=== PATIENT | male | born 1950 | race African-American/Black ===

== ENCOUNTER 2018-04-23 15:57 | Observation (INO) | payer OTHER ==
[2018-04-23] MEDS ORDERED: Ondansetron HCl/PF 4 MG/2 ML Vial ONE (16:09)
[2018-04-23 16:46] LABS: #Basophils 0.1 thou/uL (0.0-0.2); #Eosinphils 0.4 thou/uL (0.0-0.7); #Monocytes 0.6 thou/uL (0.11-0.59); #Neutrophils 1.7 thou/uL (1.40-6.50); %Basophils 1.3 % (0.0-1.0); %Eosinophils 8.4 % (0.0-10.0); %Lymphocytes 41.6 % (21.0-51.0); %Monocytes 13.4 % (0.0-10.0); %Neutrophils 35.3 % (42.0-75.0); Hemoglobin 12.4 g/dL (14.0-18.0); Mean Corpuscular HGB CONC 33.7 g/dL (32.0-36.0); Mean Corpuscular Hemoglobin 31.5 pg (27.0-31.0); Mean Corpuscular Volume 93.3 fL (78.0-98.0); Platelet Count 156 thou/uL (130-400); RBC Distribution Width 11.3 % (11.5-14.5); Red Blood Cell (RBC) Count 3.93 mill/uL (4.70-6.10); White Blood Cell (WBC) Count 4.8 thou/uL (4.8-10.8)
[2018-04-23 16:52] LABS: PTT 26.8 SEC (22.9-36.1); Prothrombin Time 13.3 SEC (12.0-14.7)
--- NOTE | 2018-04-23 16:55 | RAD ---
PORTABLE UPRIGHT CHEST ONE VIEW: 04/23/18 HISTORY: 67-year-old male with history of chest pain which began approximately an hour and a half ago with rad iation into left arm. Postop midline sternotomy and coronary artery bypass changes. Mild increased markings in the infrahil ar regions raising concern for some minimal subsegmental atelectasis and possibly mild vascular crowd ing from poor inspiration. No confluent pneumonia or overt edema or pleural effusion. IMPRESSION: Increased markings in the basis, probably related to vascular crowding or possibly some underlying ch ronic change. No confluent pneumonia, overt edema or other acute process. POS: [facility]
[2018-04-23 17:07] LABS: ALT (SGPT) 13 U/L (8-55); AST (SGOT) 16 U/L (5-34); Albumin 4.2 g/dL (3.4-4.8); Alkaline Phosphatase 129 U/L (40-150); Anion Gap 14 mmol/L (10-20); BUN (Urea Nitrogen) 12 mg/dL (8.4-25.7); Bilirubin, Total 0.3 mg/dL (0.2-1.2); CK (CPK) 136 U/L (30-200); Calc. Creatinine Clearance 0 mL/min (70-130); Carbon Dioxide 21 mmol/L (23-31); Chloride 106 mmol/L (98-107); Estimated GFR-MDRD 76; Globulin 3.1 g/dL (2.4-3.5); Glucose 105 mg/dL (80-115); Potassium 4.3 mmol/L (3.5-5.1); Protein, Total 7.3 g/dL (5.8-8.1); Sodium 137 mmol/L (136-145)
[2018-04-23 17:12] LABS: CKMB 1.6 ng/mL (0-6.6); Troponin I 0.011 ng/mL (< 0.028)
[2018-04-23] MEDS ORDERED: Morphine 4 MG/ML VIAL ONE (18:53)
[2018-04-23 19:51] LABS: Troponin I 0.022 ng/mL (< 0.028)
[2018-04-23] MEDS ORDERED: Nitroglycerin 0.4 MG TAB (25 Tab Bottle) ONE (22:36)
[2018-04-23 23:58] LABS: Troponin I 0.011 ng/mL (< 0.028)
[2018-04-24 00:21] VITALS: BMI 23.1
[2018-04-24] MEDS ORDERED: Ondansetron HCl/PF 4 MG/2 ML Vial IVP PRN (00:27)
[2018-04-24] MEDS ORDERED: Nitroglycerin 0.4 MG TAB (25 Tab Bottle) SL PRN (01:04)
[2018-04-24] MEDS: Acetaminophen 325 MG TAB PO PRN ×2 (02:11→09:12)
[2018-04-24 02:20] LABS: Band 3 % (5-11); Eosinophils 4 % (0-10); Hemoglobin 12.5 g/dL (14.0-18.0); Lymphocytes 60 % (21-51); MDiff Complete? YES; Mean Corpuscular Hemoglobin 32.5 pg (27.0-31.0); Mean Platelet Volume 8.5 fL (7.4-10.4); Monocytes 8 % (0-10); Neutrophil 23 % (42-75); Platelet Count 162 thou/uL (130-400); RBC Distribution Width 11.3 % (11.5-14.5); Red Blood Cell (RBC) Count 3.85 mill/uL (4.70-6.10); White Blood Cell (WBC) Count 4.5 thou/uL (4.8-10.8)
[2018-04-24] MEDS: Nitroglycerin 0.4 MG TAB (25 Tab Bottle) SL PRN ×4 (02:20→23:48)
[2018-04-24 02:24] LABS: Troponin I 0.012 ng/mL (< 0.028)
[2018-04-24 02:45] LABS: Anion Gap 10 mmol/L (10-20); BUN (Urea Nitrogen) 11 mg/dL (8.4-25.7); Calc. Creatinine Clearance 69 mL/min (70-130); Carbon Dioxide 26 mmol/L (23-31); Chloride 107 mmol/L (98-107); Estimated GFR-MDRD 80; Glucose 147 mg/dL (80-115); Potassium 3.7 mmol/L (3.5-5.1); Sodium 139 mmol/L (136-145)
--- NOTE | 2018-04-24 03:50 | HP ---
CODE STATUS: FULL CODE TIME OF EVALUATION: 12:00 a.m. PRIMARY CARE PHYSICIAN: Patient is in shelter. No PCP reported. CHIEF COMPLAINT: Chest pain. HISTORY OF PRESENT ILLNESS: This is a 67-year-old male patient with past medical history of coronary artery disease. The patient has a stent placed in April on 04/03/2018 came to the hospital after h aving severe, 8/10, pressure-like pain in the middle of the chest radiating to the left arm. No josefina r triggers, no alleviating factors. The patient had some relief with nitroglycerin, only improvement was with opioids and steroids. The patient's pain is associated with no specific symptoms. No coug h, sputum production REVIEW OF SYSTEMS: Constitutional: No fever, no chills, generalized weakness. Respiratory: No cou gh, sputum production or shortness of breath. Cardiovascular: Chest pain as described in HPI. No p alpitation or shortness of breath. Gastrointestinal: No nausea, vomiting, diarrhea or abdominal angelica n. [employer] ARCHITECT: No dizziness, headache or feeling lightheaded. No burning on urination. Extremities: No leg swelling. All other systems reviewed and negative except for the findings mentioned above. PAST MEDICAL HISTORY: Anemia, GERD, hepatitis C, epilepsy. PAST SURGICAL HISTORY: Stent x1 two weeks ago. PSYCHIATRIC HISTORY: None reported. FAMILY HISTORY: Father with cancer. Mother, no significant medical history. DRUG ALLERGIES: INOSINE. REPORTED MEDICATIONS: Plavix, cyanocobalamin, duloxetine, amlodipine, aspirin, atorvastatin. PHYSICAL EXAMINATION: VITAL SIGNS: Blood pressure 113/66, heart rate 52, respiratory rate was 18, temperature 97.4, pain w as 8/10, oxygen saturation 99% on room air. GENERAL APPEARANCE: Patient is alert, oriented, no acute distress. HEENT: Normal conjunctivae. Moist oral mucosa. Anicteric. NECK: No JVD. RESPIRATORY: Bilateral air entry. No rales, no wheezing. Symmetric expansion. CARDIOVASCULAR: Normal rate, regular rhythm. No murmurs, no gallop. No edema. ABDOMEN: Soft, normal bowel sounds. MUSCULOSKELETAL: Baseline range of motion and strength. No tenderness. SKIN: Warm and intact. No pallor, no rash, no redness. NEUROLOGIC: Baseline sensorium. No evidence of any new focal weakness. Baseline speech. Cranial n erves, sensory intact. PSYCHIATRIC: The patient has good mood. No anxiety, oriented, optimal judgment. LABORATORY DATA: EKG was reviewed. The patient has sinus bradycardia at the rate of 48 with IA 170, QRS 82, QT corrected 400. Nonspecific ST and T-wave abnormalities. Chest x-ray was reviewed. The patient had increased markings in the bases, probably related to vascular crowding and possible some underlying chronic changes, no confluent pneumonia or edema or other acute process. The labs were re viewed. The patient had white count 4.8, hemoglobin 12.4, MCV 93, platelet count 156. Chemistry was completely normal. LFTs were normal. Kidney function is normal. Troponins were negative x3. ASSESSMENT AND PLAN: The patient will be placed in the hospital for the following medical problems. 1. Chest pain, rule out acute coronary syndrome. The patient has a troponin that is negative x3, no EKG changes, the patient does have a recent stent placed 2 weeks ago in [place]; for the reason, w e will consult Cardiology, reconcile home medications. We will treat symptomatically. 2. History of gastroesophageal reflux disease, reconcile home meds. 3. History of epilepsy, chronic, seems to stable, reconcile home meds. 4. Hypertension has been uncontrolled on initial presentation was systolic 160, has been in better c ontrol after that, reconcile home medications, likely due to acute distress. 5. Hyperlipidemia. The patient will continue on home meds. Low cholesterol diet is advised. 6. Deep venous thrombosis prophylaxis. Risk assessment, the patient is high risk of complication du e to need for administration of opioid medications IV for pain control.
[2018-04-24] MEDS ORDERED: Prevnar 13-Val Conj/PF 0.5 ML SYRINGE IM ONE (09:00)
[2018-04-24] MEDS ORDERED: Cyanocobalamin 1000 MCG/ML VIAL IM SCH (09:00)
[2018-04-24] MEDS: Amlodipine 5 MG TAB PO SCH (09:10)
[2018-04-24] MEDS: Enoxaparin Sodium 40 MG/0.4 ML SYRINGE SC SCH (09:11)
[2018-04-24] MEDS: Clopidogrel Bisulfate 75 MG TAB PO SCH (09:11)
[2018-04-24] MEDS: Aspirin 81 mg Enteric Coated Tablet PO SCH (09:11)
[2018-04-24] MEDS: Famotidine 20 MG TAB PO SCH (09:11)
--- NOTE | 2018-04-24 10:31 | CON ---
DATE OF CONSULTATION: 04/24/2018 REASON FOR CONSULTATION: Chest pain. HISTORY OF PRESENT ILLNESS: Mr. Ureña is a 67-year-old gentleman who comes to the hospital for chest pain. He is an inmate and had an episode of chest pain initially back in 018. He was taken to the [facility] where he had a heart catheterization, apparently 2 stent s were placed. It is unclear to what vessels. He has a history of a previous bypass surgery about 3 years ago. He states he had 3-vessel bypass and on that heart catheterization he was told that one of the bypasses was completely occluded and this was the area that was stented and he was told that t he other bypass was beginning to degenerate. He is concerned that this pain may be coming from that other bypass degenerating. He tells me that today he had pain very similar to what he had back in [facility], so he decided to complain about this and he was brought in for further evaluation. So far, his t roponins have been completely negative x4 with a normal BNP. He is currently chest pain free. PAST MEDICAL HISTORY: 1. Anemia. 2. Gastroesophageal reflux disease. 3. Hepatitis C. 4. Epilepsy. 5. Coronary artery disease. PAST SURGICAL HISTORY: 1. Stent 2 weeks ago, apparently x1. 2. Coronary bypass grafting x3 about 3 years ago per his report. FAMILY HISTORY: Sister has hepatitis C. Another sister with mesothelioma. Father with cirrhosis an d lung cancer. SOCIAL HISTORY: No alcohol, tobacco or drugs. He is currently an inmate. OUTPATIENT MEDICATIONS: 1. Plavix 75 mg a day. 2. Atorvastatin 80 mg at bedtime. 3. Duloxetine 30 mg at bedtime. 4. Vitamin B12. 5. Aspirin 81 daily. 6. Amlodipine 5 mg. 7. Dilantin 300 mg daily. 8. Sublingual nitro. 9. Isosorbide mononitrate 30 mg a day. 10. Ranitidine 150 mg daily. ALLERGIES: INDOMETHACIN. REVIEW OF SYSTEMS: A 12-point review of systems was done and is all negative unless stated in histor y of present illness. PHYSICAL EXAMINATION: VITAL SIGNS: Temperature 97.4, pulse 48, respiration rate 16, satting 95% on room air, blood pressur e 140/80. GENERAL: Awake, alert, oriented x3, in no distress. HEENT: Normocephalic, atraumatic. NECK: Supple. LUNGS: Lungs are clear. CARDIOVASCULAR: S1, S2, no S3, S4. There is a grade 2/6 systolic murmur right upper sternal border. ABDOMEN: Soft, positive bowel sounds. EXTREMITIES: No edema. SKIN: Warm and dry. LABORATORY WORK: Laboratory work was reviewed. White count of 4.8, hemoglobin of 12.4, hematocrit 3 6, platelet count of 156,000. Coags were negative. Chemistries were unremarkable except for glucose of 147. BNP was 26. Troponin I was 0.01, 0.02, 0.01, 0.01 with a normal CK-MB. Albumin was 4.2, B UN and creatinine are normal. EKG was reviewed, sinus bradycardia, prominent U wave. Chest x-ray was reviewed, no acute intrapulmonary issues. ASSESSMENT AND PLAN: 1. Chest pain: Certainly this could be angina from residual disease. He is currently not having a myocardial infarction. We will try to get records from [place] to see exactly what his recent cath eterization showed other than just the areas where the stents were placed. He may have residual dise ase that was not amenable to intervention that requires further increasing the intensity in his anti anginals. For this suspicion, I will increase his Imdur to 60 mg daily, as his blood pressure will a lso benefit from this. Otherwise, we will get an echocardiogram and after we get the records we will decide if he needs any further intervention in this regard. 2. Coronary artery disease, no evidence of an acute coronary syndrome for now. Thank you for letting us participate in the care of the patient. We will follow.
--- NOTE | 2018-04-24 14:29 | PDOC.EVN ---
Event Note - Event Note Event Note: pt seen and examined. Now pain about 5/10 and he is more comfortable chart reviewed.Hisotory obtained from pt again VSS CTA b/l RRR cont ASA,plavix get ECHO.get records from [place] from recent Cath/stent on 04/14/18 tele monitoring following cardiology recs-Increase Imdur
[2018-04-24] MEDS ORDERED: DULoxetine 30 MG CAP PO SCH (21:00)
[2018-04-24] MEDS ORDERED: Atorvastatin Calcium 40 MG TAB PO SCH (21:00)
[2018-04-25 08:18] VITALS: BP 159/76; TEMP 98.1
[2018-04-25] MEDS: Clopidogrel Bisulfate 75 MG TAB PO SCH (09:54)
[2018-04-25] MEDS: Aspirin 81 mg Enteric Coated Tablet PO SCH (09:54)
[2018-04-25] MEDS: Enoxaparin Sodium 40 MG/0.4 ML SYRINGE SC SCH (09:54)
[2018-04-25] MEDS: Amlodipine 5 MG TAB PO SCH (09:54)
[2018-04-25] MEDS: Famotidine 20 MG TAB PO SCH (09:55)
--- NOTE | 2018-04-25 09:55 | PDOC.CTH ---
Cardiology Progress Note - Subjective He is doing well. No chest pain. - Objective Vital Signs Temp Pulse Resp BP BP Pulse Ox 04/25/18 08:25 98.1 F 56 L 20 04/25/18 07:49 98.1 F 56 L 20 159/76 H 93 L 04/25/18 04:00 98.3 F 78 16 119/72 96 04/24/18 23:52 119/68 04/24/18 23:47 139/77 04/24/18 23:21 98.1 F 63 21 H 148/83 H 95 Weight 158 lb 5 oz 04/24/18 04/25/18 04/26/18 06:59 06:59 06:59 Intake Total 150 1520 Output Total 425 1275 275 Balance -275 245 -275 - Physical Examination General/Neuro: alert & oriented x3, NAD Neck: no JVD present Lungs: unlabored respirations Heart: RRR Abdomen: NT/ND Extremities: other: (no edema.) - Telemetry Telemetry Rhythm: NSR - Labs Result Diagrams: 04/24/18 01:49 04/24/18 01:49 Troponin/CKMB CK-MB (CK-2) 1.6 ng/mL (0-6.6) 04/23/18 16:38 Troponin I 0.012 ng/mL (< 0.028) 04/24/18 01:49 - Assessment/Plan 1. Chest pain, likely chronic stable angina 2. CAD. S/P CABG. 3. Recent Stenting in [place]. PLAN: - Continue medical therapy. - May discharge with increased dose of Imdur. - Follow up with Incident Response Coordinator in [place]. - Will sign off. Please call with any questions.
--- NOTE | 2018-04-25 18:19 | DIS ---
DATE OF ADMISSION: 04/24/2018 DATE OF DISCHARGE: 04/25/2018 CONDITION AT THE TIME OF DISCHARGE: Stable and improved. DISCHARGE DISPOSITION: Back to alf. PRIMARY CARE PHYSICIAN: At alf. PROCEDURES DONE IN THE HOSPITAL: Transthoracic echocardiogram, which shows preserved ejection fracti on of 60% -65% and grade 2/3 diastolic dysfunction. CONSULTATION INHOUSE: Dr. Daniel from [facility]iology [facility]. DISCHARGE MEDICATIONS: Remain the same as admission medication except that his isosorbide has increa sed from 30 mg daily to 60 mg daily. Rest as follows. Plavix 75 mg daily, atorvastatin 80 mg daily, duloxetine 30 mg daily, B12 1000 mg daily, aspirin 81 mg daily, Norvasc 5 mg daily, Dilantin 300 mg daily, nitroglycerin sublingual p.r.n., ranitidine 150 mg daily. DISCHARGE DIAGNOSES: 1. Chest pain, likely stable angina. 2. History of coronary artery disease status post cardiac stenting 2 weeks ago and coronary artery b ypass grafting few years ago. 3. Chronic anemia. 4. Gastroesophageal reflux disease. 5. History of hepatitis C and epilepsy. HISTORY OF PRESENTING ILLNESS: Mr. Ureña is a pleasant 67-year-old male who is currently incarcera [facility], who had history of coronary artery disease and underwent cardiac stenting in [place] about a w [place] ago for anginal symptoms, came to the hospital for persistent chest pain. At the time of present ation, he was hemodynamically stable. Nitroglycerin seemed to relieve his chest pain. His EKG showe d some sinus bradycardia with heart rate of 48, MN interval 170, QRS 82 and corrected QT [address] and T-wave changes. Cardiac enzymes are negative x3. He was admitted on te lemetry unit for further workup of chest pain and Cardiology was consulted. He is on aspirin and [place] vix and is compliant with his medication, which were restarted among other home medications. Please see admission history and physical for further details. HOSPITAL COURSE: The patient was seen by Cardiology and remained hemodynamically stable throughout h is hospitalization without any significant chest pain. He underwent an echocardiogram which showed p reserved ejection fraction. Dr. Daniel saw the patient and acute coronary syndrome was ruled out by serial cardiac enzymes and EKGs and cardiac monitoring. He recommended that the patient most likely has anginal symptoms and his Imdur was increased. He is instructed to follow up with his cardiologis t in [place] area in few days. He does have an upcoming appointment to discuss this further with mirlande hatch. We tried to get his records from [place], but we are unable to do so far. As of this morning , he is cleared by Cardiology to discharge and is asymptomatic and will need to follow up with his n shuttler car as an outpatient. He was seen and examined. PHYSICAL EXAMINATION: VITAL SIGNS: This morning, temperature 98.1, pulse of 56, blood pressure 159/76, respirations 20, sa turating 93% on room air. GENERAL: No acute distress, awake and alert, and oriented x3. CHEST: Clear to auscultation without any wheezing, rales or rhonchi. Rhythm is regular without any murmurs or gallops.
== END 2018-04-25 13:38 | disposition home or self-care (01) ==
LOC: ERS 15:57 → 2SW 04-24 00:19
PROVIDERS: ADMIT Hospitalist; ATTEND Hospitalist
DX: R07.89 Other chest pain (principal); I25.10 Atherosclerotic heart disease of native coronary artery without angina pectoris; K21.9 Gastro-esophageal reflux disease without esophagitis; G40.909 Epilepsy, unspecified, not intractable, without status epilepticus; E78.5 Hyperlipidemia, unspecified; D53.9 Nutritional anemia, unspecified; Z79.02 Long term (current) use of antithrombotics/antiplatelets; Z79.82 Long term (current) use of aspirin; Z79.899 Other long term (current) drug therapy; Z88.8 Allergy status to other drugs, medicaments and biological substances; Z95.1 Presence of aortocoronary bypass graft; Z95.5 Presence of coronary angioplasty implant and graft
CPT/HCPCS: 36415; 71045; 80048; 80053; 82550; 82553; 83880; 84484; 85025; 85610; 85730; 90471; 90670; 93005; 93306; 94760; 96361; 96372; 96374; 96375; 96376; G0009; G0378; J1650; J2270; J2405; J3420

== ENCOUNTER 2018-10-14 20:59 | Emergency (ER) | payer OTHER ==
[2018-10-14] MEDS ORDERED: Morphine 4 MG/ML VIAL ONE (21:43)
[2018-10-14] MEDS ORDERED: Ondansetron PF 4 MG/2 ML Vial ONE (21:43)
[2018-10-14 21:46] LABS: #Eosinphils 0.2 thou/uL (0.0-0.7); #Lymphocytes 1.7 thou/uL (1.20-3.40); #Monocytes 0.7 thou/uL (0.11-0.59); #Neutrophils 5.3 thou/uL (1.40-6.50); %Basophils 0.4 % (0.0-1.0); %Eosinophils 2.9 % (0.0-10.0); %Monocytes 9.2 % (0.0-10.0); %Neutrophils 66.5 % (42.0-75.0); Mean Corpuscular HGB CONC 32.3 g/dL (32.0-36.0); Mean Corpuscular Hemoglobin 31.7 pg (27.0-31.0); Mean Corpuscular Volume 98.2 fL (78.0-98.0); Platelet Count 169 thou/uL (130-400); RBC Distribution Width 11.2 % (11.5-14.5); Red Blood Cell (RBC) Count 4.42 mill/uL (4.70-6.10)
[2018-10-14] MEDS ORDERED: Fentanyl 100 MCG/2 ML VIAL ONE (21:48)
[2018-10-14 21:52] LABS: Prothrombin Time 12.8 SEC (12.0-14.7)
[2018-10-14 22:06] LABS: ALT (SGPT) 14 U/L (8-55); AST (SGOT) 21 U/L (5-34); Alkaline Phosphatase 167 U/L (40-150); Anion Gap 14 mmol/L (10-20); BUN (Urea Nitrogen) 12 mg/dL (8.4-25.7); Bilirubin, Total 0.4 mg/dL (0.2-1.2); Calc. Creatinine Clearance 0 mL/min (70-130); Calcium 8.8 mg/dL (7.8-10.44); Carbon Dioxide 22 mmol/L (23-31); Chloride 106 mmol/L (98-107); Estimated GFR-MDRD Greater than 90; Globulin 3.1 g/dL (2.4-3.5); Glucose 93 mg/dL (80-115); Potassium 4.2 mmol/L (3.5-5.1); Protein, Total 7.1 g/dL (5.8-8.1); Sodium 138 mmol/L (136-145)
--- NOTE | 2018-10-14 22:32 | RAD ---
FRONTAL RADIOGRAPH CHEST 10/14/18 COMPARISON: 04/23/18 HISTORY: Left sided squeezing chest pain. FINDINGS: There is mild increased linear density in the perihilar regions in both lung bases, similar when comp ared to prior imaging, suggesting mild chronic interstitial thickening and/pulmonary vascular congest ion. Midline sternotomy wires and mediastinal clips are present. There is no pneumothorax, focal cons olidation, or alveolar edema. IMPRESSION: Stable appearance of the chest as described above. POS: [place]
== END 2018-10-15 02:05 ==
LOC: ERS 20:59 → EEVIPCON 20:59 → ERS 10-15 02:05
DX: R07.89 Other chest pain (principal); D64.9 Anemia, unspecified; K21.9 Gastro-esophageal reflux disease without esophagitis; G40.909 Epilepsy, unspecified, not intractable, without status epilepticus; Z79.899 Other long term (current) drug therapy; Z79.82 Long term (current) use of aspirin
CPT/HCPCS: 36415; 71045; 80053; 84484; 85025; 85610; 85730; 93005; 96374; J2270; J2405; J3010

== ENCOUNTER 2018-11-14 07:35 | Emergency (ER) | payer OTHER ==
[2018-11-14 08:36] LABS: #Basophils 0.1 thou/uL (0.0-0.2); #Eosinphils 0.5 thou/uL (0.0-0.7); #Lymphocytes 2.2 thou/uL (1.20-3.40); #Monocytes 0.5 thou/uL (0.11-0.59); #Neutrophils 1.9 thou/uL (1.40-6.50); %Eosinophils 8.7 % (0.0-10.0); %Lymphocytes 42.2 % (21.0-51.0); %Monocytes 10.1 % (0.0-10.0); %Neutrophils 36.9 % (42.0-75.0); Hemoglobin 15.2 g/dL (14.0-18.0); Mean Corpuscular HGB CONC 32.1 g/dL (32.0-36.0); Mean Corpuscular Volume 96.6 fL (78.0-98.0); Mean Platelet Volume 9.6 fL (7.4-10.4); Platelet Count 126 thou/uL (130-400); RBC Distribution Width 10.8 % (11.5-14.5); Red Blood Cell (RBC) Count 4.89 mill/uL (4.70-6.10); White Blood Cell (WBC) Count 5.3 thou/uL (4.8-10.8)
[2018-11-14 08:58] LABS: ALT (SGPT) 17 U/L (8-55); AST (SGOT) 22 U/L (5-34); Albumin 4.6 g/dL (3.4-4.8); Alkaline Phosphatase 172 U/L (40-150); Anion Gap 18 mmol/L (10-20); BUN (Urea Nitrogen) 13 mg/dL (8.4-25.7); Bilirubin, Total 0.5 mg/dL (0.2-1.2); CK (CPK) 155 U/L (30-200); Calc. Creatinine Clearance 0 mL/min (70-130); Calcium 9.7 mg/dL (7.8-10.44); Carbon Dioxide 23 mmol/L (23-31); Chloride 103 mmol/L (98-107); Estimated GFR-MDRD 86; Globulin 3.5 g/dL (2.4-3.5); Glucose 80 mg/dL (80-115); Potassium 4.2 mmol/L (3.5-5.1); Protein, Total 8.1 g/dL (5.8-8.1); Sodium 140 mmol/L (136-145)
--- NOTE | 2018-11-14 09:14 | RAD ---
PORTABLE CHEST: Date: 11/14/18 PROVIDED CLINICAL HISTORY: Chest pain. FINDINGS: Comparison with 10/14/18. Cardiac and mediastinal silhouette is unchanged in appearance. Median sternotomy changes are again se en. Left subclavian cardiac pacing device is demonstrated, with lead tips overlying expected location s of RA and RV. No focal consolidation, pleural fluid, or pneumothorax apparent. IMPRESSION: No evidence for an acute cardiopulmonary process. POS: [facility]
[2018-11-14] MEDS ORDERED: Acetaminophen 500 MG TAB ONE ×2 (12:46→12:50)
== END 2018-11-14 13:20 ==
LOC: ERS 07:35
DX: R07.89 Other chest pain (principal); Z95.0 Presence of cardiac pacemaker; D64.9 Anemia, unspecified; K21.9 Gastro-esophageal reflux disease without esophagitis; G40.909 Epilepsy, unspecified, not intractable, without status epilepticus; Z79.899 Other long term (current) drug therapy
CPT/HCPCS: 36415; 71045; 80053; 82550; 84484; 85025; 87040; 93005